=== PATIENT | female | born 1950 | race Caucasian/White ===

== ENCOUNTER → 2018-11-26 | Outpatient (CLI) | payer OTHER | LOC: CAT 10:38 → EDSTATUS 16:51 → CAT 17:15 | DX: Z13.6 Encounter for screening for cardiovascular disorders (principal); E78.00 Pure hypercholesterolemia, unspecified; I25.10 Atherosclerotic heart disease of native coronary artery without angina pectoris ==

== ENCOUNTER → 2020-02-17 | Outpatient (CLI) | payer OTHER, BC | LOC: SJCVC 11:03 | PROVIDERS: ATTEND Internal Medicine Cardiovascular Disease | DX: I48.0 Paroxysmal atrial fibrillation (principal); I49.1 Atrial premature depolarization; Z90.710 Acquired absence of both cervix and uterus; Z79.899 Other long term (current) drug therapy; Z87.891 Personal history of nicotine dependence ==

== ENCOUNTER → 2020-06-30 | Outpatient (CLI) | payer OTHER | LOC: BC 11:18 | PROVIDERS: ATTEND Nurse Practitioner | DX: Z12.31 Encounter for screening mammogram for malignant neoplasm of breast (principal); M85.88 Other specified disorders of bone density and structure, other site ==

== ENCOUNTER → 2021-04-12 | Outpatient (CLI) | payer OTHER | LOC: SJCVCIMAG 07:59 | PROVIDERS: ATTEND Internal Medicine Cardiovascular Disease | DX: I08.3 Combined rheumatic disorders of mitral, aortic and tricuspid valves (principal); R00.1 Bradycardia, unspecified; I48.0 Paroxysmal atrial fibrillation; I82.401 Acute embolism and thrombosis of unspecified deep veins of right lower extremity; Z87.891 Personal history of nicotine dependence; Z79.82 Long term (current) use of aspirin; Z79.899 Other long term (current) drug therapy; Z88.0 Allergy status to penicillin ==

== ENCOUNTER → 2021-04-20 | Outpatient (CLI) | payer OTHER | LOC: RAD 11:11 | PROVIDERS: ATTEND Nurse Practitioner | DX: M54.5 Low back pain (principal); M25.551 Pain in right hip ==